=== PATIENT | female | born 1945 | race Caucasian/White ===

== ENCOUNTER → 2020-10-19 | Outpatient (CLI) | payer MEDICARE, BC ==
[~2020-10-19] MED LIST: ASPIRIN EC81 MG PO; ATORVASTATIN CA20 MG PO; BACTRIM DS TAB1 EACH PO; BRILINTA 90 MG90 MG PO; CALCIUM + VITA1 EACH PO; CARVEDILOL3.125 MG PO; CIPRO500 MG PO; IBUPROFEN800 MG PO; LIQUID B121000 MCG/1 SL; LISINOPRIL10 MG PO; NITROGLYCERIN0.4 MG SL; PEPCID20 MG PO; VITAMIN D21250 MCG PO
== END ==
LOC: ECHO 10:21 → HEART 5 11:00 → ECHO 11:30
DX: Z00.00 Encounter for general adult medical examination without abnormal findings (principal); I27.20 Pulmonary hypertension, unspecified; I25.2 Old myocardial infarction; Z95.5 Presence of coronary angioplasty implant and graft; I08.3 Combined rheumatic disorders of mitral, aortic and tricuspid valves
CPT/HCPCS: ECHO; 93306

== ENCOUNTER 2021-10-19 11:23 | Emergency (ER) | payer MEDICARE, BC ==
[2021-10-19] MEDS ORDERED: ENDOCET 5-3251 EACH PO ×2 (16:27→16:31)
== END 2021-10-19 16:40 | disposition home or self-care (01) ==
LOC: ER1 11:23
DX: M48.061 Spinal stenosis, lumbar region without neurogenic claudication (principal); M47.9 Spondylosis, unspecified; M51.36 Other intervertebral disc degeneration, lumbar region
CPT/HCPCS: 72131; 73502; 73552; 73562; 99284

== ENCOUNTER → 2021-11-22 | Outpatient (CLI) | payer MEDICARE, BC ==
[~2021-11-22] MED LIST changes: +ATORVASTATIN CA40 MG PO; +ENDOCET 5-3251 EACH PO; +LANSOPRAZOLE30 MG PO; +LOW DOSE ASPIRI81 MG PO
[2021-11-22 09:37] LABS: HEMOGLOBIN 14.8 gm/dl (12.3-15.3); RED BLOOD COUNT 4.79 M/UL (4.00-5.10); WHITE BLOOD COUNT 7.8 K/UL (4.5-11.0)
[2021-11-22 10:00] LABS: BUN/CREATININE RATIO 32 (0-10)
== END ==
LOC: OPSV2 07:54 → EDSTATUS 08:00 → OPSV2 08:00
PROVIDERS: Orthopaedic Surgery
DX: Z01.818 Encounter for other preprocedural examination (principal); M17.12 Unilateral primary osteoarthritis, left knee; I25.2 Old myocardial infarction; R94.31 Abnormal electrocardiogram [ECG] [EKG]; Z88.0 Allergy status to penicillin
CPT/HCPCS: 36415; 71046; 80048; 85025; 85610; 85730; 93005

== ENCOUNTER → 2021-11-29 | Outpatient (CLI) | payer MEDICARE, BC ==
[~2021-11-29] MED LIST changes: +ELIQUIS 2.5 MG2.5 MG PO; +FERROUS SULFAT325 M2 PO
== END ==
LOC: KOH-I 11-14 13:00 → EXRD 11-15 15:00
DX: Z01.818 Encounter for other preprocedural examination (principal); Z13.6 Encounter for screening for cardiovascular disorders; Z20.822 Contact with and (suspected) exposure to COVID-19; M17.12 Unilateral primary osteoarthritis, left knee
CPT/HCPCS: 93926; U0003

== ENCOUNTER → 2021-12-02 | Outpatient (CLI) | payer MEDICARE, BC ==
[2021-12-02 11:05] LABS: BUN/CREATININE RATIO 20 (0-10)
== END ==
LOC: LAB 10:04
PROVIDERS: Orthopaedic Surgery
DX: Z01.812 Encounter for preprocedural laboratory examination (principal)
CPT/HCPCS: 36415; 80048; 86850; 86900; 86901

== ENCOUNTER 2021-12-03 05:01 | Day surgery (SDC) | payer MEDICARE, BC ==
[~2021-12-03] VITALS: Ht 157.5 cm; Wt 80.7 kg
[~2021-12-03 05:01] MED LIST changes: -ELIQUIS 2.5 MG2.5 MG PO; -FERROUS SULFAT325 M2 PO
[2021-12-04 06:23] LABS: HEMOGLOBIN 10.4 gm/dl (12.3-15.3); RED BLOOD COUNT 3.4 M/UL (4.00-5.10); WHITE BLOOD COUNT 15.7 K/UL (4.5-11.0)
[2021-12-04 06:41] LABS: BUN/CREATININE RATIO 28 (0-10)
[2021-12-04] MEDS ORDERED: ELIQUIS 2.5 MG2.5 MG PO (09:06)
[2021-12-04] MEDS ORDERED: FERROUS SULFAT325 M2 PO (10:12)
--- NOTE | 2021-12-04 14:21 | NUR ---
REPORT CALLED TO [facility] WITH [facility]. KANNAN AND PATRICIA BERNARD SENT WITH PATIENT. PATIENT EDUCATED ON USE OF BOTH. VERBALIZES UNDERSTANDING.
== END 2021-12-04 14:11 | disposition home or self-care (01) ==
LOC: M/S 05:01 → OR 05:01 → EDSTATUS 07:30 → OR 14:55 → M/S 14:55 → OR 12-04 14:11
PROVIDERS: Orthopaedic Surgery
DX: M17.12 Unilateral primary osteoarthritis, left knee (principal); M79.4 Hypertrophy of (infrapatellar) fat pad; I10 Essential (primary) hypertension; M51.36 Other intervertebral disc degeneration, lumbar region; M48.061 Spinal stenosis, lumbar region without neurogenic claudication; I25.10 Atherosclerotic heart disease of native coronary artery without angina pectoris; Z20.822 Contact with and (suspected) exposure to COVID-19; Z79.82 Long term (current) use of aspirin; Z88.0 Allergy status to penicillin
CPT/HCPCS: 36415; 73560; 80048; 83540; 83550; 83735; 85025; 97110-GP-CQ; 97116-GP-CQ; 97161; 97166; 97530; 97535; C1713; C1776; J0171; J0690; J1100; J2001; J2274; J2370; J2405; J2704; J2795; J3010; J7040; J7120